=== PATIENT | female | born 1980 | race Caucasian/White ===

== ENCOUNTER 2016-03-20 20:01 | Inpatient (IN) | payer OTHER ==
[~2016-03-20] VITALS: Ht 170.2 cm; Wt 52.1 kg
[~2016-03-20 20:01] MED LIST: ACETAMINOPHEN-1 EAC1 PO; ACID CONTROL150 MG PO; ADALAT CC 30 MG30 MG PO; ADDERALL20 MG PO; ADULT LOW DOSE81 M1; ALAVERT10 MG PO; AMLODIPINE BESY10 MG PO; AMPHETAMINE SAL20 MG PO; APRESOLINE100 MG PO; ASPIRIN E.C.81 M1 PO; ATIVAN1 MG PO; ATORVASTATIN CA20 MG PO; ATROPINE LEFT EYE; AVASTIN400 MG/16 INTRA-VIT; BENADRYL25 MG PO; CALCIUM ACETAT667 MG PO; CEFDINIR300 MG PO; CETIRIZINE HCL10 M2 PO; CIPRO500 MG PO; CLARITIN10 M3 PO; COUMADIN5 MG PO; COZAAR100 MG PO; CYANOCOBALAM1000 MCG PO; DIOVAN HCT 11 TABLET PO; DIOVAN HCT 1601 EACH; DIOVAN160 MG PO; DIOVAN40 MG PO; ENDOCET 5-3251 EACH PO; ERGOCALCIF50000 UNIT PO; FERROUS SULFAT325 MG PO; FLAGYL500 MG PO; FLUOXETINE HCL20 MG PO; FOLIC ACID1 MG PO; Feosol PO; HEARTBURN150 MG PO; HUMALOG100 UNIT/1 SC; HUMALOG100 UNIT/2; HUMALOG100 UNIT/2 SC; HUMALOG100 UNITS/ SC; HUMALOG100 UNITS/ SQ; HYDRALAZINE HC100 MG PO; LEVAQUIN500 MG PO; LEVEMIR FL100 UNIT/1 SC; LEVEMIR FL100 UNITS/ SC; LEVEMIR100 UNIT/2 SC; LIPITOR20 MG PO; LIPITOR40 MG PO; LOPRESSOR100 M1 PO; LORAZEPAM0.5 MG PO; LORAZEPAM1 MG PO; LOSARTAN POTAS100 MG PO; LOSARTAN POTASS50 MG PO; Lopressor PO; MAGIC MOUTHWASH1 ML PO; METOCLOPRAMIDE H5 MG PO; METOCLOPRAMIDE10 MG PO; METOPROLOL TAR100 MG PO; METOPROLOL TART50 MG PO; MIRTAZAPINE30 MG PO; NIFEDICAL XL30 MG PO; NIFEDIPINE ER60 MG PO; NOVOFINE NEE1 NEEDLE; ONDANSETRON ODT4 MG PO; PEN-VEE K,VEET500 MG; PERCOCET 5/31 TABLET PO; POLYETHYLENE GL17 GM PO; PRAVACHOL40 MG PO; PRAVACHOL80 MG PO; PRILOSEC OTC20 MG PO; PROCARDIA XL30 MG PO; PROMETHAZINE HC25 M1 PO; PROTONIX40 MG PO; Potassium Gluconate PO; Pred Forte 1%,Omnipr LEFT EYE; Prozac PO; RANITIDINE HCL150 M1 PO; RANITIDINE HCL150 MG PO; REGLAN10 MG PO; REGLAN5 MG PO; REMERON30 M2; REMERON30 M2 PO; ROPINIROLE HC0.25 MG PO; Reglan PO; Remeron PO; SEASONALE,JO1 TABLET PO; THERAGRAN1 TABLET PO; Tums PO; Tylenol Regular Stre PO; VELPHORO PO; VELPHORO500 MG PO; VENTOLIN HFA18 GM IH; ZANTAC150 MG PO; ZOFRAN ODT4 MG PO; ZOFRAN4 MG PO; ZOFRAN8 M1 PO; ZYRTEC10 M2 PO; Zantac PO; Zofran PO
[2016-03-20 20:44] LABS: HEMATOCRIT 29.2 % (36.0-46.0); MCH 30.5 PG (29.0-34.0); MCHC 30.8 G/DL (30.0-36.0); MEAN PLAT.VOLUME 9.2 uM^3 (9.5-12.4); PLATELET COUNT 276 K/uL (156-360); RBC DIS.WIDTH-CV 15.6 % (11.8-14.6); RBC DIS.WIDTH-SD 53.4 % (39-53); RED BLOOD COUNT 2.95 M/uL (3.80-5.20); WHITE BLOOD COUNT 17.7 K/uL (4.1-10.2)
[2016-03-20 20:52] LABS: CHLORIDE 100 MEQ/L (99-109); SODIUM 139 MEQ/L (136-147)
[2016-03-20 20:53] LABS: GLUCOSE 210 mg/dL (70-99)
[2016-03-20 20:55] LABS: ANION GAP 17 MEQ/L (2-14)
[2016-03-20 20:56] LABS: POTASSIUM 6.3 MEQ/L (3.7-5.4)
[2016-03-20 20:57] LABS: GFR ESTIMATE (CALCULATED) 7 mL/min/
[2016-03-20 20:58] LABS: UREA NITROGEN (BUN) 95 mg/dL (9-23)
[2016-03-20 21:05] LABS: TROP-I INTERPRETATION NEGATIVE; TROPONIN-I 0.15 ng/mL (0.0-0.30)
[2016-03-21] VITALS (19 sets, daily range): BP systolic 142–194; BP diastolic 53–103
[2016-03-21 02:48] LABS: POINT-OF-CARE USER ID PHATLC
[2016-03-21 03:18] LABS: CHLORIDE 99 mEq/L (99-109); SODIUM 137 mEq/L (136-147)
[2016-03-21 03:21] LABS: ANION GAP 21 MEQ/L (2-14)
[2016-03-21 03:21] LABS: METH RESISTANT S AUREUS PCR NEGATIVE (NEGATIVE)
[2016-03-21 03:23] LABS: GFR ESTIMATE (CALCULATED) 7 mL/min/
[2016-03-21 03:24] LABS: UREA NITROGEN (BUN) 100 mg/dL (9-23)
[2016-03-21 03:35] LABS: GLUCOSE 331 mg/dL (70-99)
[2016-03-21 03:36] LABS: POTASSIUM 7.3 mEq/L (3.7-5.4)
[2016-03-21 03:37] LABS: PROBE CHECK PASS; SPECIMEN PROCESSING CONTROL PASS
[2016-03-21 05:51] LABS: POINT-OF-CARE USER ID 609231305
[2016-03-21 08:04] LABS: EOSINOPHIL (%) 0.2 % (0-5); EOSINOPHIL COUNT 0.1 K/uL (0-0.3); HEMATOCRIT 28.1 % (36.0-46.0); IMMATURE GRANULOCYTE (%) 0.5 % (0.0-0.7); IMMATURE GRANULOCYTE COUNT 0.1 K/uL; LYMPHOCYTE COUNT 0.5 K/uL (1.0-2.8); MCH 30.8 PG (29.0-34.0); MCHC 30.6 G/DL (30.0-36.0); MCV 100.7 FL (83-99); MEAN PLAT.VOLUME 10.6 uM^3 (9.5-12.4); MONOCYTE (%) 0.4 % (3-12); MONOCYTE COUNT 0.1 K/uL (0-0.8); NEUTROPHIL (%) 96.6 % (45-76); NEUTROPHIL COUNT 23.9 K/uL (1.8-6.4); PLATELET COUNT 264 K/uL (156-360); RBC DIS.WIDTH-CV 16.3 % (11.8-14.6); RED BLOOD COUNT 2.79 M/uL (3.80-5.20)
[2016-03-21 08:07] LABS: WHITE BLOOD COUNT 24.7 K/uL (4.1-10.2)
[2016-03-21 08:41] LABS: HEMATOLOGY COMMENT 1 SMEAR COMPATIBLE; USER ID SDF
[2016-03-21 16:17] LABS: POINT-OF-CARE METER ID UU13113748
[2016-03-21 19:20] LABS: ANION GAP 23 MEQ/L (2-14); CHLORIDE 96 MEQ/L (99-109); GFR ESTIMATE (CALCULATED) 16 mL/min/; GLUCOSE 120 mg/dL (70-99); POTASSIUM 4.6 MEQ/L (3.7-5.4); SODIUM 142 MEQ/L (136-147); UREA NITROGEN (BUN) 46 mg/dL (9-23)
[2016-03-21 22:42] LABS: POINT-OF-CARE METER ID UU13113748; POINT-OF-CARE USER ID PHATLC
[2016-03-22] VITALS (12 sets, daily range): BP systolic 137–175; BP diastolic 36–92
[2016-03-22 06:12] LABS: ANION GAP 18 MEQ/L (2-14); CHLORIDE 97 MEQ/L (99-109); GFR ESTIMATE (CALCULATED) 11 mL/min/; POTASSIUM 4.7 MEQ/L (3.7-5.4); SAMPLE HEMOLYSIS CHECK 0; SAMPLE ICTERIC CHECK 0; SAMPLE LIPEMIA CHECK 0; SODIUM 145 MEQ/L (136-147); UREA NITROGEN (BUN) 66 mg/dL (9-23)
[2016-03-22 06:24] LABS: GLUCOSE 67 mg/dL (70-99)
[2016-03-22 06:25] LABS: HEMATOCRIT 31.8 % (36.0-46.0); MCH 29.5 PG (29.0-34.0); MCHC 29.9 G/DL (30.0-36.0); MCV 98.8 FL (83-99); MEAN PLAT.VOLUME 10.4 uM^3 (9.5-12.4); PLATELET COUNT 262 K/uL (156-360); RBC DIS.WIDTH-CV 16.5 % (11.8-14.6); RBC DIS.WIDTH-SD 58.9 % (39-53); RED BLOOD COUNT 3.22 M/uL (3.80-5.20)
[2016-03-22 06:26] LABS: WHITE BLOOD COUNT 13.3 K/uL (4.1-10.2)
[2016-03-22 14:01] LABS: POINT-OF-CARE METER ID UU13113681
[2016-03-22 14:48] LABS: HBSG INDEX 0.18
[2016-03-22 14:49] LABS: HEPATITIS B SURFACE ANTIBODY EQUIVOCAL
[2016-03-22 15:19] LABS: AHBS INDEX 10.06
[2016-03-22 17:01] LABS: POINT-OF-CARE METER ID UU13113748
[2016-03-22 23:12] LABS: GLUCOSE 753 mg/dL (70-99)
[2016-03-23] VITALS: BP 148/80
[2016-03-23 07:05] LABS: HEMATOCRIT 26.9 % (36.0-46.0); MCH 30.9 PG (29.0-34.0); MCV 96.8 FL (83-99); MEAN PLAT.VOLUME 10.4 uM^3 (9.5-12.4); PLATELET COUNT 281 K/uL (156-360); RBC DIS.WIDTH-CV 16.7 % (11.8-14.6); RBC DIS.WIDTH-SD 59.3 % (39-53); RED BLOOD COUNT 2.78 M/uL (3.80-5.20); WHITE BLOOD COUNT 10.9 K/uL (4.1-10.2)
[2016-03-23 07:23] VITALS: BP 153/71
[2016-03-23 07:43] LABS: POINT-OF-CARE METER ID UU14174225
[2016-03-23 07:55] LABS: ANION GAP 18 MEQ/L (2-14); CHLORIDE 97 MEQ/L (99-109); GFR ESTIMATE (CALCULATED) 12 mL/min/; SAMPLE HEMOLYSIS CHECK 0; SAMPLE ICTERIC CHECK 0; SAMPLE LIPEMIA CHECK 0; UREA NITROGEN (BUN) 62 mg/dL (9-23)
[2016-03-23 08:02] LABS: GLUCOSE 158 mg/dL (70-99); SODIUM 136 MEQ/L (136-147)
[2016-03-23 08:37] LABS: POINT-OF-CARE METER ID UU13113681
[2016-03-23 11:41] VITALS: BP 129/86
[2016-03-23 15:14] VITALS: BP 141/72
== END 2016-03-23 15:54 | disposition left against medical advice (07) | DRG 154 ==
LOC: EME → EDBD 20:01 → 4WEST 23:13 → 5SOUTH 23:13 → EDOF 23:13 → 4WEST 03-21 01:58 → 5SOUTH 03-22 17:34
PROVIDERS: Emergency Medicine; Hospitalist; Internal Medicine; Internal Medicine Critical Care Medicine
PROC: 5A1D60Z (ICD-10-PCS; principal; 2016-03-21)
PROC: 0CJS8ZZ Inspection of Larynx, Via Natural or Artificial Opening Endoscopic (ICD-10-PCS; 2016-03-21)
DX: J38.4 Edema of larynx (principal); E87.2 Acidosis; N18.6 End stage renal disease; I12.0 Hypertensive chronic kidney disease with stage 5 chronic kidney disease or end stage renal disease; N25.81 Secondary hyperparathyroidism of renal origin; E87.79 Other fluid overload; J98.8 Other specified respiratory disorders; R06.00 Dyspnea, unspecified; E87.5 Hyperkalemia; D63.1 Anemia in chronic kidney disease; J45.909 Unspecified asthma, uncomplicated; E10.22 Type 1 diabetes mellitus with diabetic chronic kidney disease; E10.65 Type 1 diabetes mellitus with hyperglycemia; E10.21 Type 1 diabetes mellitus with diabetic nephropathy; E10.43 Type 1 diabetes mellitus with diabetic autonomic (poly)neuropathy; E10.319 Type 1 diabetes mellitus with unspecified diabetic retinopathy without macular edema; E83.39 Other disorders of phosphorus metabolism; H54.42 Blindness, left eye, normal vision right eye; K21.9 Gastro-esophageal reflux disease without esophagitis; F41.9 Anxiety disorder, unspecified; F31.9 Bipolar disorder, unspecified; F17.210 Nicotine dependence, cigarettes, uncomplicated; Z99.2 Dependence on renal dialysis; Z86.718 Personal history of other venous thrombosis and embolism; Z79.02 Long term (current) use of antithrombotics/antiplatelets; Z86.73 Personal history of transient ischemic attack (TIA), and cerebral infarction without residual deficits; Z85.41 Personal history of malignant neoplasm of cervix uteri; Z79.4 Long term (current) use of insulin; Z88.0 Allergy status to penicillin; Z88.5 Allergy status to narcotic agent; Z86.011 Personal history of benign neoplasm of the brain
CPT/HCPCS: 71010; 80048; 80048 91; 82009; 82948; 83605; 83735; 84100; 84484; 84999; 85025; 85027; 86706; 87040; 87340; 87641; 93005; 94640; 94640 76; 94644; 94760; 94799; 99202; 99281; 99285; J0360; J0456; J0692; J0881; J1100; J1644; J1756; J1815; J2060; J3370; J7042; J7050; J7644; J8540

== ENCOUNTER 2016-07-19 09:28 | Emergency (ER) | payer OTHER ==
[~2016-07-19] VITALS: Ht 162.6 cm; Wt 60.7 kg
[2016-07-19 10:16] LABS: POINT-OF-CARE METER ID UU14100415
[2016-07-19 11:04] LABS: EOSINOPHIL COUNT 0.3 K/uL (0-0.3); IMMATURE GRANULOCYTE (%) 0.5 % (0.0-0.7); INSTRUMENT ABS NEUTROPHIL CT 2.4 K/uL; LYMPHOCYTE COUNT 1.1 K/uL (1.0-2.8); MCH 30.9 PG (29.0-34.0); MCHC 31.3 G/DL (30.0-36.0); MCV 98.7 FL (83-99); MEAN PLAT.VOLUME 10.5 uM^3 (9.5-12.4); MONOCYTE (%) 7.5 % (3-12); MONOCYTE COUNT 0.3 K/uL (0-0.8); NEUTROPHIL (%) 58.3 % (45-76); NEUTROPHIL COUNT 2.4 K/uL (1.8-6.4); PLATELET COUNT 198 K/uL (156-360); RBC DIS.WIDTH-CV 14.9 % (11.8-14.6); RBC DIS.WIDTH-SD 53.5 % (39-53); RED BLOOD COUNT 3.14 M/uL (3.80-5.20); WHITE BLOOD COUNT 4.2 K/uL (4.1-10.2)
[2016-07-19 11:21] LABS: POINT-OF-CARE METER ID UU14100415
[2016-07-19 11:24] LABS: TROP-I INTERPRETATION NEGATIVE; TROPONIN-I 0.01 ng/mL (0.0-0.30)
[2016-07-19 13:11] LABS: CHLORIDE 93 mEq/L (99-109); POTASSIUM 4.1 mEq/L (3.7-5.4); SODIUM 143 mEq/L (136-147)
[2016-07-19 13:14] LABS: GLUCOSE 140 mg/dL (70-99)
[2016-07-19 13:15] LABS: ANION GAP 15 MEQ/L (2-14)
[2016-07-19 13:16] LABS: TOTAL BILIRUBIN 0.5 mg/dL (0.0-1.0)
[2016-07-19 13:17] LABS: ALKALINE PHOSPHATASE 104 IU/L (3-129); GFR ESTIMATE (CALCULATED) 8 mL/min/
[2016-07-19 13:18] LABS: UREA NITROGEN (BUN) 31 mg/dL (9-23)
[2016-07-19 14:32] LABS: POINT-OF-CARE METER ID UU14100415
[2016-07-19] MEDS ORDERED: SENSIPAR30 MG PO (15:06)
[2016-07-19] MEDS ORDERED: VELPHORO500 MG PO (15:07)
[2016-07-19] MEDS ORDERED: ROPINIROLE HC0.25 MG PO (15:08)
[2016-07-19] MEDS ORDERED: MIRTAZAPINE30 MG PO (15:09)
[2016-07-19] MEDS ORDERED: ADALAT CC 60 MG60 MG PO (15:11)
[2016-07-19] MEDS ORDERED: LEVETIRACETAM500 MG PO (15:12)
[2016-07-19] MEDS ORDERED: AGONEAZE 2.5%-1 EACH TP (15:15)
[2016-07-19] MEDS ORDERED: IPRATROPIU0.2 MG/1 M IH (15:16)
[2016-07-19] MEDS ORDERED: BREO ELLIPTA I1 EACH IH (15:17)
[2016-07-19] MEDS ORDERED: OXYCODONE HCL5 MG PO (15:19)
[2016-07-19] MEDS ORDERED: AMPHETAMINE SAL20 MG PO (15:19)
[2016-07-19] MEDS ORDERED: HUMALOG100 UNIT/2 SC ×2 (15:21→15:23)
[2016-07-19] MEDS ORDERED: LEVEMIR FL100 UNIT/1 SC ×2 (15:22)
[2016-07-19] MEDS ORDERED: LORAZEPAM1 MG PO (15:24)
[2016-07-19] MEDS ORDERED: RANITIDINE HCL150 MG PO (15:25)
[2016-07-19] MEDS ORDERED: APRESOLINE100 MG PO (15:26)
[2016-07-19] MEDS ORDERED: METOCLOPRAMIDE H5 MG PO (15:26)
[2016-07-19] MEDS ORDERED: CLONIDINE HCL0.2 MG PO (15:27)
[2016-07-19] MEDS ORDERED: LOPRESSOR100 M1 PO (15:27)
[2016-07-19] MEDS ORDERED: ATORVASTATIN CA40 MG PO (15:27)
[2016-07-19] MEDS ORDERED: PLAVIX75 MG PO (15:28)
[2016-07-19 16:43] VITALS: BP 194/89
== END 2016-07-19 16:44 | disposition left against medical advice (07) ==
LOC: EME → EDBD 09:28 → EME 09:28 → EDOF 15:06
PROVIDERS: Emergency Medicine
DX: I12.0 Hypertensive chronic kidney disease with stage 5 chronic kidney disease or end stage renal disease (principal); E11.649 Type 2 diabetes mellitus with hypoglycemia without coma; T68.XXXA Hypothermia, initial encounter; N18.5 Chronic kidney disease, stage 5; Z99.2 Dependence on renal dialysis; Z72.0 Tobacco use
CPT/HCPCS: 71010; 80053; 82948; 83605; 84484; 85025; 87040; 93005; 99281; 99285